=== PATIENT | female | born 1955 | race Two or more races ===

== ENCOUNTER → 2020-09-21 | Day surgery (SDC) | payer MEDICARE, MEDICAID ==
[2020-09-18 12:45] LABS: APPEARANCE,URINE CLEAR; BILIRUBIN, URINE NEGATIVE (NEGATIVE); COLOR,URINE PALE YELLOW; GLUCOSE, URINE (UA) NEGATIVE (NEGATIVE); KETONES,URINE NEGATIVE (NEGATIVE); LEUKOCYTE ESTERASE ,URINE 2+ (NEGATIVE); NITRITE,URINE NEGATIVE (NEGATIVE); PH,URINE 5 (4.5-8.0); PROTEIN,URINE 1+ (NEGATIVE); UROBILINOGEN,URINE NORMAL MG/DL (0.0-1.0)
[2020-09-18 12:46] LABS: EOSINOPHILS % (AUTO) 1.6 % (0.0-3.0); HEMOGLOBIN 13.6 G/DL (12.0-16.0); LYMPHOCYTES % (AUTO) 42.4 % (20.0-45.0); MEAN CORPUSCULAR VOLUME 102 FL (80-99); MONOCYTES % (AUTO) 7.5 % (1.0-10.0); NEUTROPHILS % (AUTO) 47.5 % (45.0-75.0); PLATELET COUNT 233 K/UL (150-450); RED BLOOD COUNT 4.21 M/UL (4.20-5.40); RED CELL DISTRIBUTION WIDTH 13.2 % (11.6-14.8); WHITE BLOOD COUNT 6.9 K/UL (4.8-10.8)
[2020-09-18 12:58] LABS: ALANINE AMINOTRANSFERASE 19 U/L (12-78); ALBUMIN 3.9 G/DL (3.4-5.0); ALBUMIN/GLOBULIN RATIO 0.8 (1.0-2.7); ALKALINE PHOSPHATASE 119 U/L (46-116); ANION GAP 9 mmol/L (5-15); ASPARTATE AMINO TRANSFERASE 21 U/L (15-37); BILIRUBIN,TOTAL 0.1 MG/DL (0.2-1.0); BLOOD UREA NITROGEN 14 mg/dL (7-18); CALCIUM 9.5 MG/DL (8.5-10.1); CARBON DIOXIDE 28 MMOL/L (21-32); CHLORIDE 103 MMOL/L (98-107); CREATININE 0.8 MG/DL (0.55-1.30); POTASSIUM 4.1 MMOL/L (3.5-5.1); SODIUM 139 MMOL/L (136-145)
--- NOTE | 2020-09-18 14:03 | Diagnostic Imaging Report ---
Indication: Technique: 2 views of the chest Comparison: None Findings: Lungs and pleural spaces are clear. The heart size is normal. There is considerable focal kyphotic deformity at the thoracolumbar junction, but only minimal wedging of the T12 vertebral body. Impression: No acute process. Findings as noted
--- NOTE | 2020-09-19 15:47 | Cardiology Report ---
APPROVED REPORT EKG Measurement Heart [id number] <Conclusion> Normal sinus rhythm Cannot rule out Anterior infarct, age undetermined Abnormal ECG
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
[2020-09-21] VITALS (13 sets, daily range): BP systolic 114–141; BP diastolic 52–71
[~2020-09-21] VITALS: Ht 160 cm; Wt 95.7 kg
[~2020-09-21] MED LIST: Acetaminophen (Non formulary) 100 ML IV ONE; Atropine Sulfate 0.4mg/ml inj IVP PRN; Bacitracin 50000 Units Vial ONE; D5 1/2NS 1,000 ML IV SCH; DiphenhydrAMINE 50mg/ml Inj IVP PRN; HYDROcodone/Acetamin 5/325 tab ORAL PRN; HYDROcodone/Acetamin 7.5/325 tab ORAL PRN; HYDROmorphone 1mg/ml Carpuject SUBQ PRN; Hydromorphone 0.5mg/0.5ml inj IVP PRN; Ketorolac 30mg Inj IV PRN; LORazepam Inj 2mg/ml 1ml IV PRN; LR 1000ml 1,000 ML IVLG SCH; LR 1000ml ONE; Labetalol 5mg/ml 20ml vial IV PRN; Meperidine 25mg/1ml Inj (FOR RIGORS ONLY) IV PRN; Metoclopramide 10mg/2ml Inj IVP PRN; Midazolam 2mg/2ml Inj IVP PRN; NS Irrig 1000ml IRRIG ONE; Sodium Chloride 10ml vial INJ ONE; Sterile Water Irrig 1000ml IRRIG ONE; TRAMADOL HCL100 M2 ORAL; TYLENOL EXTRA500 MG ORAL; Tylenol #3 tab (300mg/30mg) ORAL PRN; fentaNYL 100 mcg/2 mL IV PRN; oxyCODONE HCL/Acetaminophen 5/325mg ORAL PRN
--- NOTE | 2020-09-21 09:41 | Pre-Procedure Note/Attestation ---
Pre-Procedure Note/Attestation Complete Prior to Procedure Planned Procedure: right Procedure Narrative: right breast partial mastectomy with pre-operative needle localization Indications for Procedure Pre-Operative Diagnosis: ductal carcinoma in situ right breast Attestation I attest that I discussed the nature of the procedure; its benefits; risks and complications; and alternatives (and the risks and benefits of such alternatives), prior to the procedure, with the patient (or the patient's legal outbound sales representative). I attest that, if there was a reasonable possibility of needing a blood transfusion, the patient (or the patient's legal outbound sales representative) was given the [facility] standardized written summary, pursuant to the [place] Blood Safety Act ([place] Health and Safety Code # 1645, as amended). I attest that I re-evaluated the patient just prior to the surgery and that there has been no change in the patient's H&P, except as documented below: none Raman Wright MD Sep 21, 2020 09:40
--- NOTE | 2020-09-21 10:20 | Anethesia Preoperative Eval ---
Anesthesia Pre-op PMH/ROS General Date of Evaluation: Sep 21, 2020 Time of Evaluation: 10:21 Anesthesiologist: Patrice ASA Score: ASA 3 Mallampati Score Class I : Soft palate, uvula, fauces, pillars visible Class II: Soft palate, uvula, fauces visible Class III: Soft palate, base of uvula visible Class IV: Only hard plate visible Mallampati Classification: Class II Surgeon: Kyle Diagnosis: Ductal carcinoma in situ, right breast. Surgical Procedure: R Breast Partial Mastectomy Anesthesia History: none Family History: no anesthesia problems Allergies: Coded Allergies: No Known Allergies (Unverified , 09/21/20) Medications: see eMAR Patient NPO?: Yes Past Medical History Cardiovascular: Reports: HTN Hematology/Immune: Reports: other - Breast CA Other: obesity PSxH Narrative: C/S, Abd Sx Anesthesia Pre-op Phys. Exam Physician Exam Last Vital Signs Date Time Temp Pulse Resp B/P (MAP) Pulse Ox O2 Delivery O2 Flow Rate FiO2 09/21/20 08:33 97.4 67 18 140/63 98 Room Air Constitutional: NAD Neurologic: CN 2-12 intact Cardiovascular: RRR Respiratory: CTA Gastrointestinal: S/NT/ND Airway Exam Mallampati Score: Class II MO: full ROM: full Teeth: missing, intact Anesthesia Pre-op A/P Risk Assessment & Plan Assessment: ASA 3 Plan: GA, SED Status Change Before Surgery: No Pre-Antibiotics Dru Gram Ancef IV Given Within 1 Hr of Incision: Yes Time Given: 10:46 Bruno Ibrahim MD Sep 21, 2020 10:20
--- NOTE | 2020-09-21 10:36 | Immediate Post-Op Evaluation ---
Immediate Post-Op Evalulation Immediate Post-Op Evalulation Procedure: R Breast Partial Mastectomy Date of Evaluation: Sep 21, 2020 Time of Evaluation: 12:18 IV Fluids: 1000 LR Blood Products: 0 Estimated Blood Loss: 25 Urinary Output: 0 Blood Pressure Systolic: 117 Blood Pressure Diastolic: 62 Pulse Rate: 57 Respiratory Rate: 18 O2 Sat by Pulse Oximetry: 100 Temperature (Fahrenheit): 97 Pain Score (1-10): 2 Nausea: No Vomiting: No Complications 0 Patient Status: awake, reacts, patent, none Hydration Status: adequate Dru Gram Ancef IV Given Within 1 Hr of Incision: Yes Time Given: 10:46 Bruno Ibrahim MD Sep 21, 2020 10:36
--- NOTE | 2020-09-21 11:54 | Brief Operative Note ---
Immediate Post Operative Note Operative Note Pre-op Diagnosis: ductal carcinoma in situ right breast Procedure: right breast partial mastectomy with pre-operative needle localization Post-op Diagnosis: same Post-op Diagnosis: same as pre-op Findings: consistent w/pre-op dx studies Surgeon: artem Anesthesiologist: sanya Anesthesia: general Specimen: yes - right breast partial mastectomy Complications: none Condition: stable Fluids: see anesthesia record Estimated Blood Loss: minimal Drains: none Implant(s) used?: No Raman Wright MD Sep 21, 2020 11:54
--- NOTE | 2020-09-21 11:59 | 48 Hour Post Anesthesia Eval ---
Post Anesthesia Evaluation Procedure: R Breast Partial Mastectomy Date of Evaluation: Sep 21, 2020 Time of Evaluation: 14:23 Blood Pressure Systolic: 147 0: 72 Pulse Rate: 63 Respiratory Rate: 18 Temperature (Fahrenheit): 98 O2 Sat by Pulse Oximetry: 100 Nausea: No Vomiting: No Pain Intensity: 2 Hydration Status: adequate Cardiopulmonary Status: Stable Mental Status/LOC: patient returned to baseline Follow-up Care/Observations: 0 Post-Anesthesia Complications: 0 Follow-up care needed: ready to discharge Bruno Ibrahim MD Sep 21, 2020 11:59
--- NOTE | 2020-09-21 13:29 | Operative Note - Dictated ---
DATE OF OPERATION: 09/21/2020 SURGEON: Raman Wright MD. NATUROPATHIC DOCTOR: None. ANESTHESIOLOGIST: Bruno Ibrahim MD. TYPE OF ANESTHESIA: General. PREOPERATIVE DIAGNOSIS: Ductal carcinoma in situ, right breast. POSTOPERATIVE DIAGNOSIS: Ductal carcinoma in situ, right breast. OPERATION PERFORMED: Right breast partial mastectomy with preoperative needle localization. DESCRIPTION OF PROCEDURE: The patient was taken to the operating room and under general anesthesia with sequential compression device stockings in place, she was prepped and draped in usual fashion. The lesion was located near the periphery of the upper outer quadrant of the right breast approximately 10 o'clock along the deep border of the breast. A curvilinear outer breast incision was made achieving hemostasis with cautery and dissecting flaps circumferentially, bringing the localization wire into the field. As I did a wide excision, it became obvious there was a palpable nodule marked by the wire. A complete wide excision was performed using cautery and the specimen was oriented with sutures placed anterior, superior, and medial. The tissue was inspected by the pathologist who confirmed that the lesion had been totally encompassed with a partial mastectomy. The field was irrigated with sterile water followed by antibiotic solution and hemostasis carefully achieved with cautery. The incision was closed with interrupted 3-0 Vicryl deep dermal subcutaneous sutures followed by continuous 4-0 Monocryl subcuticular suture. Mastisol and half-inch Steri-Strips were applied followed by dry sterile dressing and then the application of a surgical vest . The patient tolerated the procedure well and left the operating room in good condition. Raman Wright M.D. DR: Jose JOB#: [id number] CC: YANIRA
== END | disposition home or self-care (01) ==
LOC: SUR 08:08 → EDBD 10:00
DX: D05.11 Intraductal carcinoma in situ of right breast (principal); I10 Essential (primary) hypertension; E66.9 Obesity, unspecified; Z68.37 Body mass index [BMI] 37.0-37.9, adult
CPT/HCPCS: 19301; 36415; 71046; 80053; 81001; 85025; 85610; 85730; 87086; 93005; 94003; J0131; J0690; J1100; J1885; J2250; J2405; J2765; J3010; J7120; U0004; 94150